=== PATIENT | male | born 1975 | race Caucasian/White ===

== ENCOUNTER 2022-09-22 20:17 | Emergency (ER) | payer BC, SELFPAY ==
[2022-09-22 20:18] VITALS: BP 183/112; PULSE 115; RESP 10; TEMP 36.8; O2SAT 100; BMI 46.2
--- NOTE | 2022-09-22 20:22 | EKG12_ITS ---
Test Reason : DYSRHYTHMIA Blood Pressure : / mmHG Vent. Rate : 121 BPM Atrial Rate : 121 BPM P-R Int : 156 ms QRS Dur : 080 ms QT Int : 326 ms P-R-T Axes : 062 075 063 degrees QTc Int : 462 ms Sinus tachycardia Otherwise normal ECG Confirmed by AVERY VEGA, RENÉE ([id number]), associate editor MARCIAL BUI ([id number]) on 09/24/2022 1:27:20 PM Referred By: PL Confirmed By:WILLIAM VARELA MD
[2022-09-22 20:24] VITALS: TEMP 37.1
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
[2022-09-22] MEDS: Diphth,Pertuss(Acell),Tet Vac 0.5 ML Vial IM (20:31)
[2022-09-22] MEDS: Ondansetron 4 MG/2 ML Vial IV (20:32)
[2022-09-22 20:33] VITALS: BP 163/114; PULSE 116; RESP 18; O2SAT 100
[2022-09-22 20:34] LABS: Absolute Lymphocyte Count 5.64 X10^3/uL (0.83-4.51); Absolute Neutrophil Count 8.3 X10^3/uL (2.0-7.7); Basophil# 0.13 X10^3/uL; Basophil% 0.8 % (0-1); Eosinophil# 0.66 X10^3/uL; Eosinophils% 4.2 % (0-5); Hematocrit 42.4 % (40-54); Hemoglobin 14.1 g/dL (13.0-16.5); Lymphocyte # 5.64 X10^3/ul (0.83-4.51); Mean Corp Hgb Conc 33.3 g/dL (32-36); Mean Corpuscular Hgb 29.3 pg (27.0-32.0); Mean Platelet Vol. 10.2 fl (6.2-12.0); Monocyte# 0.76 X10^3/uL; Monocyte% 4.9 % (0-10); NRBC Flagged by Analyzer 0 % (0-5); Neutrophil # 8.26 X10^3/uL (2.7-7.7); Neutrophil % 52.7 % (47-70); POSITIVE DIFFERENTIAL YES; Platelet Count 323 K/mm3 (150-450); RBC Distribution Width SD 41.8 fl (35.1-43.9); Red Blood Count 4.82 M/mm3 (4.6-6.2); White Blood Count 15.7 K/mm3 (4.4-11.0)
[2022-09-22 20:36] LABS: Differential Indicated SCAN CRITERIA MET
[2022-09-22] MEDS: Cefazolin 2 GM in 0.9% Normal Saline 100 ML IV (20:42)
[2022-09-22] MEDS: fentaNYL 100 MCG/2 ML Ampul 25 MCG IV (20:42)
[2022-09-22 20:49] VITALS: BP 159/103; PULSE 136; RESP 18; O2SAT 98
[2022-09-22 20:49] LABS: Alcohol, Blood (Medical)-Serum < 3.0 mg/dL
[2022-09-22 20:51] LABS: ALB/GLOB Ratio 0.9 RATIO (0.9-2.4); AST(SGOT) 55 U/L (15-37); Alanine Aminotransfer ALT/SGPT 69 U/L (16-61); Albumin, Serum 3.3 g/dL (3.2-5.0); Alkaline Phosphatase 82 U/L (45-117); Anion Gap 7 (5-15); BUN 13 mg/dL (7-18); BUN/Creat Ratio 10.9 RATIO (10-20); Calcium,Total 8.6 mg/dL (8.5-10.1); Chloride 106 mmol/L (98-107); Creatinine, Serum 1.19 mg/dL (0.70-1.30); EST Glomerular Filtration Rate 69 mL/min (>60); Est Glom Filt Rate - Afr Amer 84 mL/min (>60); Estimated Creatinine Clearance 83.32 ml/min; Globulin 3.5 g/dL (2.2-4.2); Glucose 264 mg/dL (74-106); Lipase 65 U/L (13-75); Potassium 3.8 mmol/L (3.5-5.1); Protein, Total 6.8 g/dL (6.4-8.2); Sodium Level 138 mmol/L (136-145); Troponin-I HS 3 pg/mL (3.0-78.0)
[2022-09-22 21:01] LABS: Differential Comment SCANNED
[2022-09-22 21:05] LABS: Lactic Acid 3.5 mmol/L (0.4-1.9)
[2022-09-22 21:10] LABS: Bedside Glucose 237 mg/dL (74-106)
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
[2022-09-23 00:36] LABS: Reflex Lactate? Y
== END 2022-09-22 21:07 | disposition short-term general hospital (02) ==
PROVIDERS: Emergency Provider Emergency Medicine; Visit Provider Emergency Medicine
DX: S82.252A Displaced comminuted fracture of shaft of left tibia, initial encounter for closed fracture (principal); E11.65 Type 2 diabetes mellitus with hyperglycemia; S82.832A Other fracture of upper and lower end of left fibula, initial encounter for closed fracture; S01.511A Laceration without foreign body of lip, initial encounter; V29.888A Rider (driver) (passenger) of other motorcycle injured in other specified transport accidents, initial encounter; Y93.89 Activity, other specified; Y99.8 Other external cause status; Y92.488 Other paved roadways as the place of occurrence of the external cause; Z79.84 Long term (current) use of oral hypoglycemic drugs
CPT/HCPCS: 51702; 71045; 72170; 73590; 80053; 82077; 82962; 83605; 83690; 84484; 85025; 85610; 85730; 90715; 93005; 96365; 96375; 99285; J7030; A4216; J2405

== ENCOUNTER 2022-10-01 11:10 | Inpatient (IN) | payer BC, SELFPAY ==
[2022-10-01 06:00] VITALS: BMI 40.5
[2022-10-01 11:58] VITALS: BP 136/84; PULSE 114; PULSE 116; RESP 18; TEMP 36.1; O2SAT 97; BMI 42.9
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
[2022-10-01] MEDS: oxyCODONE 5 MG Tablet 10 MG PO ×2 (14:35→22:31)
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
[2022-10-01] MEDS: Methocarbamol 500 MG Tablet 1000 MG PO ×2 (14:58→22:27)
[2022-10-01] MEDS: Acetaminophen 500 MG Tablet 1000 MG PO ×2 (14:58→22:27)
[2022-10-01 17:00] LABS: Bedside Glucose 233 mg/dL (74-106)
[2022-10-01] MEDS: Insulin Lispro 100 UNIT/ML INSULN.PEN 22 UNIT SC (17:39)
[2022-10-01] MEDS: Insulin Lispro 100 UNIT/ML INSULN.PEN SC (17:39)
[2022-10-01] MEDS: metFORMIN HCl 1,000 MG Tablet 1000 MG PO (17:39)
[2022-10-01 19:47] VITALS: BP 122/62; PULSE 115; RESP 14; TEMP 36.9; O2SAT 95
[2022-10-01 20:16] VITALS: TEMP 36.6
[2022-10-01 22:27] VITALS: PULSE 116; RESP 16; O2SAT 94
[2022-10-01] MEDS: Senna/Docusate Sodium 1 Tablet 2 TABLET PO (22:28)
[2022-10-01] MEDS: Atorvastatin Calcium 10 MG Tablet 5 MG PO (22:28)
[2022-10-01] MEDS: APIXABAN 2.5 MG TABLET (WCH) PO (22:28)
[2022-10-01] MEDS: Atenolol 25 MG Tablet PO (22:28)
[2022-10-01] MEDS: Insulin Glargine-YFGN 100 UNIT/ML Pen 18 UNIT SC (22:32)
[2022-10-01 23:13] LABS: Bedside Glucose 139 mg/dL (74-106)
[2022-10-02] MEDS: Acetaminophen 500 MG Tablet 1000 MG PO ×3 (05:36→21:19)
[2022-10-02] MEDS: Methocarbamol 500 MG Tablet 1000 MG PO ×3 (05:36→21:20)
[2022-10-02] MEDS: oxyCODONE 5 MG Tablet 10 MG PO ×4 (05:36→21:17)
[2022-10-02 07:04] VITALS: O2SAT 92
[2022-10-02 07:24] LABS: Hematocrit 29.2 % (40-54); Hemoglobin 9.5 g/dL (13.0-16.5); Mean Corp Hgb Conc 32.5 g/dL (32-36); Mean Corpuscular Hgb 30.2 pg (27.0-32.0); Mean Corpuscular Volume 92.7 fL (80-94); Mean Platelet Vol. 9.3 fl (6.2-12.0); POSITIVE COUNT YES; POSITIVE MORPHOLOGY YES; Platelet Count 456 K/mm3 (150-450); RBC Distribution Width CV 13.8 % (11.6-14.6); RBC Distribution Width SD 45.4 fl (35.1-43.9); Red Blood Count 3.15 M/mm3 (4.6-6.2); White Blood Count 11.5 K/mm3 (4.4-11.0)
[2022-10-02 07:29] LABS: Differential Indicated MANUAL DIFF
[2022-10-02 07:30] LABS: Bedside Glucose 204 mg/dL (74-106)
[2022-10-02 07:57] LABS: Eosinophil 1 % (0-5); Lymphocyte 29 % (19-41); Myelocyte 2 % (0-0); Neutrophil-Band 5 % (0-5); Neutrophil-Segmented 63 % (47-70); Total Cells Counted 100 (MANUAL DIFF)
[2022-10-02 07:58] LABS: Anisocytosis 2+; Platelet Estimate SLT INC (ADEQ); Polychromasia 1+
[2022-10-02 07:59] LABS: Absolute Neutrophil Count 7.8 X10^3/uL (2.0-7.7); Neutrophil # 7.82 X10^3/uL (2.7-7.7)
[2022-10-02 08:00] LABS: Absolute Lymphocyte Count 3.34 X10^3/uL (0.83-4.51); Lymphocyte # 3.34 X10^3/ul (0.83-4.51)
[2022-10-02 08:17] LABS: Anion Gap 5 (5-15); BUN 16 mg/dL (7-18); BUN/Creat Ratio 16.2 RATIO (10-20); Chloride 99 mmol/L (98-107); Creatinine, Serum 0.99 mg/dL (0.70-1.30); EST Glomerular Filtration Rate 85 mL/min (>60); Est Glom Filt Rate - Afr Amer 103 mL/min (>60); Estimated Creatinine Clearance 100.16 ml/min; Glucose 204 mg/dL (74-106); Magnesium 2.4 mg/dL (1.6-2.6); Sodium Level 134 mmol/L (136-145)
[2022-10-02 08:19] VITALS: BP 137/84; PULSE 93; RESP 16; TEMP 36.1; O2SAT 94
[2022-10-02] MEDS: Insulin Lispro 100 UNIT/ML INSULN.PEN 22 UNIT SC ×3 (08:20→17:17)
[2022-10-02] MEDS: Insulin Lispro 100 UNIT/ML INSULN.PEN SC ×3 (08:21→17:18)
[2022-10-02] MEDS: metFORMIN HCl 1,000 MG Tablet 1000 MG PO ×2 (08:22→17:18)
[2022-10-02] MEDS: APIXABAN 2.5 MG TABLET (WCH) PO ×2 (08:22→21:21)
[2022-10-02] MEDS: Atenolol 25 MG Tablet PO ×2 (08:23→21:20)
[2022-10-02 08:25] LABS: Cholesterol 145 mg/dL (200); High Density Lipoprotein 31 mg/dL; Phosphorus 3.4 mg/dL (2.5-4.9); Triglycerides 113 mg/dL; Very Low Density Lipoprotein 23 mg/dL (5-40)
[2022-10-02] MEDS: Lisinopril 10 MG Tablet PO (08:25)
[2022-10-02] MEDS: Senna/Docusate Sodium 1 Tablet 2 TABLET PO ×2 (08:25→21:18)
[2022-10-02] MEDS: Polyethylene Glycol 3350 17 GM PACKET PO (08:27)
[2022-10-02 09:01] LABS: Hemoglobin A1c 7.5 % (3.8-5.6)
[2022-10-02 11:20] LABS: Bedside Glucose 214 mg/dL (74-106)
[2022-10-02 16:42] LABS: Bedside Glucose 161 mg/dL (74-106)
[2022-10-02 19:45] VITALS: BP 111/59; PULSE 99; RESP 16; TEMP 36.6; O2SAT 99
[2022-10-02] MEDS: Insulin Glargine-YFGN 100 UNIT/ML Pen 18 UNIT SC (21:17)
[2022-10-02] MEDS: Atorvastatin Calcium 10 MG Tablet 5 MG PO (21:18)
[2022-10-02 21:43] LABS: Bedside Glucose 133 mg/dL (74-106)
[2022-10-03] MEDS: oxyCODONE 5 MG Tablet 10 MG PO ×4 (05:00→21:28)
[2022-10-03] MEDS: Magnesium Hydroxide 30 ML UDC PO (05:01)
[2022-10-03] MEDS: Methocarbamol 500 MG Tablet 1000 MG PO ×3 (05:04→20:13)
[2022-10-03] MEDS: Acetaminophen 500 MG Tablet 1000 MG PO ×3 (05:04→20:14)
[2022-10-03 07:17] LABS: Bedside Glucose 184 mg/dL (74-106)
[2022-10-03 07:18] VITALS: O2SAT 97
[2022-10-03] MEDS: metFORMIN HCl 1,000 MG Tablet 1000 MG PO ×2 (07:39→16:53)
[2022-10-03] MEDS: Polyethylene Glycol 3350 17 GM PACKET PO (07:39)
[2022-10-03] MEDS: Lisinopril 10 MG Tablet PO (07:40)
[2022-10-03] MEDS: APIXABAN 2.5 MG TABLET (WCH) PO ×2 (07:40→20:13)
[2022-10-03] MEDS: Senna/Docusate Sodium 1 Tablet 2 TABLET PO ×2 (07:40→20:14)
[2022-10-03] MEDS: Atenolol 25 MG Tablet PO ×2 (07:41→20:14)
[2022-10-03] MEDS: Insulin Lispro 100 UNIT/ML INSULN.PEN 22 UNIT SC ×3 (07:49→16:53)
[2022-10-03] MEDS: Insulin Lispro 100 UNIT/ML INSULN.PEN SC ×3 (07:49→16:53)
[2022-10-03 08:03] VITALS: BP 116/77; PULSE 91; RESP 16; TEMP 36.6; O2SAT 97
[2022-10-03 11:48] LABS: Bedside Glucose 201 mg/dL (74-106)
[2022-10-03 16:37] LABS: Bedside Glucose 163 mg/dL (74-106)
[2022-10-03 19:32] VITALS: BP 116/60; PULSE 97; RESP 16; TEMP 36.6; O2SAT 98
[2022-10-03] MEDS: Atorvastatin Calcium 10 MG Tablet 5 MG PO (20:13)
[2022-10-03] MEDS: Insulin Glargine-YFGN 100 UNIT/ML Pen 18 UNIT SC (21:32)
[2022-10-03 21:53] LABS: Bedside Glucose 85 mg/dL (74-106)
[2022-10-03 23:08] LABS: Bedside Glucose 151 mg/dL (74-106)
--- NOTE | 2022-10-04 02:08 | NURSING ---
Addendum entered by Adrianna Miranda 10/04/22 02:18: Redd TRIVEDI Original Note: Reviewed and agree with [employer] documentation and assessment charting.
[2022-10-04] MEDS: Acetaminophen 500 MG Tablet 1000 MG PO ×3 (05:33→21:37)
[2022-10-04] MEDS: Methocarbamol 500 MG Tablet 1000 MG PO ×3 (05:33→21:37)
[2022-10-04 06:36] LABS: Bedside Glucose 178 mg/dL (74-106)
[2022-10-04 07:24] VITALS: BP 132/84; PULSE 89; RESP 16; TEMP 36.1; O2SAT 93
[2022-10-04] MEDS: oxyCODONE 5 MG Tablet 10 MG PO ×4 (07:39→21:35)
[2022-10-04] MEDS: Senna/Docusate Sodium 1 Tablet 2 TABLET PO ×2 (07:39→21:38)
[2022-10-04] MEDS: Atenolol 25 MG Tablet PO ×2 (07:39→21:39)
[2022-10-04] MEDS: Lisinopril 10 MG Tablet PO (07:40)
[2022-10-04] MEDS: Insulin Lispro 100 UNIT/ML INSULN.PEN 22 UNIT SC ×2 (07:41→11:47)
[2022-10-04] MEDS: Insulin Lispro 100 UNIT/ML INSULN.PEN SC ×2 (07:41→11:47)
[2022-10-04] MEDS: metFORMIN HCl 1,000 MG Tablet 1000 MG PO ×2 (07:43→17:29)
[2022-10-04] MEDS: APIXABAN 2.5 MG TABLET (WCH) PO ×2 (07:45→21:36)
[2022-10-04 08:44] LABS: Vitamin D,25 Hydroxy 41.5 ng/mL
[2022-10-04 11:30] LABS: Bedside Glucose 182 mg/dL (74-106)
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
[2022-10-04 12:28] LABS: Pathologist Review Reviewed
--- NOTE | 2022-10-04 15:20 | CASEMGMT ---
Social Work SW met w/pt complete initial assessment. Introduced self and role. SW verified contacts. Pt's goal is to return home at discharge, open to home health. Pt also aware that going to a halfway facility before going home could be an option. Pt to have a team meeting on . SW spoke w/pt about getting home health and DME for him, or if alf is needed, exploring this option. SW spoke w/pt about a ramp, as physician had mentioned this to and to speak w/pt's about it. Pt agreeable to SW calling . Pt aware of team meeting . SW did educate pt also about insurance, that we will need to see how long insurance will authorize, pt states understanding. SW called [facility], introduced self and role of SW. SW let her know we have a list of companies for ramps and will leave w/pt. inquired if insurance would cover the cost of a ramp, SW let her know that likely they will not. asked about home health, SW spoke w/her about home health vs pt going to a halfway facility from here. inquired why a ramp would be needed if pt were getting therapy at home. SW explained so that there would be a way for pt to get out of the home. SW explained that this can all be discussed further at the meeting on . states understanding. Discharge plan is to be determined, home w/home health and DME vs SNF. SW will continue to follow. GIOVANNY Connelly
[2022-10-04 16:38] LABS: Bedside Glucose 54 mg/dL (74-106)
[2022-10-04 17:05] LABS: Bedside Glucose 110 mg/dL (74-106)
[2022-10-04] MEDS: Insulin Lispro 100 UNIT/ML INSULN.PEN 20 UNIT SC (17:29)
[2022-10-04 19:30] VITALS: BP 133/68; PULSE 87; RESP 14; TEMP 36.4; O2SAT 99
[2022-10-04] MEDS: Atorvastatin Calcium 10 MG Tablet 5 MG PO (21:38)
[2022-10-04] MEDS: Insulin Glargine-YFGN 100 UNIT/ML Pen 18 UNIT SC (21:40)
[2022-10-04 22:05] LABS: Bedside Glucose 116 mg/dL (74-106)
[2022-10-05 00:25] LABS: Bedside Glucose 136 mg/dL (74-106)
[2022-10-05] MEDS: oxyCODONE 5 MG Tablet 10 MG PO ×3 (05:00→17:57)
[2022-10-05] MEDS: Methocarbamol 500 MG Tablet 1000 MG PO ×3 (05:00→20:06)
[2022-10-05] MEDS: Acetaminophen 500 MG Tablet 1000 MG PO ×3 (05:00→20:07)
[2022-10-05 06:48] LABS: Bedside Glucose 160 mg/dL (74-106)
[2022-10-05 07:52] VITALS: BP 117/68; PULSE 85; RESP 16; TEMP 36.6; O2SAT 97
[2022-10-05] MEDS: Insulin Lispro 100 UNIT/ML INSULN.PEN 25 UNIT SC (08:53)
[2022-10-05] MEDS: Insulin Lispro 100 UNIT/ML INSULN.PEN SC ×2 (08:53→12:39)
[2022-10-05] MEDS: Lisinopril 10 MG Tablet PO (08:54)
[2022-10-05] MEDS: Senna/Docusate Sodium 1 Tablet 2 TABLET PO ×2 (08:54→20:06)
[2022-10-05] MEDS: Atenolol 25 MG Tablet PO ×2 (08:54→20:07)
[2022-10-05] MEDS: DULoxetine Hcl 30 MG Capsule PO (08:54)
[2022-10-05] MEDS: metFORMIN HCl 1,000 MG Tablet 1000 MG PO ×2 (08:54→17:59)
[2022-10-05] MEDS: APIXABAN 2.5 MG TABLET (WCH) PO ×2 (08:55→20:05)
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
[2022-10-05 11:43] LABS: Bedside Glucose 162 mg/dL (74-106)
[2022-10-05] MEDS: Insulin Lispro 100 UNIT/ML INSULN.PEN 20 UNIT SC (12:38)
[2022-10-05] MEDS: Glucagon 1 MG/ML Syringe IM (14:29)
[2022-10-05 14:50] LABS: Bedside Glucose 103 mg/dL (74-106)
[2022-10-05 14:50] LABS: Bedside Glucose 54 mg/dL (74-106)
[2022-10-05 14:50] LABS: Bedside Glucose 61 mg/dL (74-106)
--- NOTE | 2022-10-05 14:52 | NURSING ---
Patient asked therapy to have his blood sugar taken. This nurse obtained blood glucose level of 61. Given coke to help w/ increasing blood sugar level. Patient still feeling dizzy/diaphoretic/shaking. Blood glucose reobtained at level of 54. Informed doctor. ordered glucagon. PRN medication not held in pharmacy. STAT request put in to pharmacy for glucagon. Patient administered glucagon. 15 mins later blood glucose level at 103. Patient states he is feeling okay-abbey. Patient stable for transfer to room.
[2022-10-05 16:24] LABS: Bedside Glucose 149 mg/dL (74-106)
[2022-10-05 19:09] VITALS: BP 114/68; PULSE 84; RESP 12; TEMP 36; O2SAT 97
[2022-10-05] MEDS: Atorvastatin Calcium 10 MG Tablet 5 MG PO (20:05)
[2022-10-05] MEDS: Insulin Glargine-YFGN 100 UNIT/ML Pen 20 UNIT SC (21:20)
[2022-10-05 22:00] VITALS: O2SAT 97
[2022-10-05 22:03] LABS: Bedside Glucose 166 mg/dL (74-106)
--- NOTE | 2022-10-06 02:00 | NURSING ---
Reviewed and agree with Redd TRIVEDI, documentation and assessment charting.
[2022-10-06] MEDS: Methocarbamol 500 MG Tablet 1000 MG PO ×3 (06:18→21:16)
[2022-10-06] MEDS: Acetaminophen 500 MG Tablet 1000 MG PO ×3 (06:18→21:17)
[2022-10-06] MEDS: oxyCODONE 5 MG Tablet 10 MG PO ×3 (06:19→21:18)
[2022-10-06 06:47] LABS: Bedside Glucose 161 mg/dL (74-106)
[2022-10-06] MEDS: metFORMIN HCl 1,000 MG Tablet 1000 MG PO ×2 (08:09→17:57)
[2022-10-06] MEDS: Insulin Lispro 100 UNIT/ML INSULN.PEN 25 UNIT SC (08:09)
[2022-10-06] MEDS: APIXABAN 2.5 MG TABLET (WCH) PO ×2 (08:10→21:15)
[2022-10-06] MEDS: DULoxetine Hcl 30 MG Capsule PO (08:10)
[2022-10-06] MEDS: Atenolol 25 MG Tablet PO ×2 (08:10→21:16)
[2022-10-06] MEDS: Lisinopril 10 MG Tablet PO (08:10)
[2022-10-06] MEDS: Senna/Docusate Sodium 1 Tablet 2 TABLET PO (08:12)
[2022-10-06 10:00] VITALS: BP 126/73; PULSE 81; RESP 16; TEMP 36.4; O2SAT 97
[2022-10-06] MEDS: DULAGLUTIDE 3 MG/0.5 ML PEN.INJCTR SQ (10:39)
[2022-10-06 11:37] LABS: Bedside Glucose 160 mg/dL (74-106)
[2022-10-06] MEDS: Insulin Lispro 100 UNIT/ML INSULN.PEN SC (12:14)
[2022-10-06] MEDS: Insulin Lispro 100 UNIT/ML INSULN.PEN 12 UNIT SC ×2 (12:14→17:58)
[2022-10-06 17:24] LABS: Bedside Glucose 108 mg/dL (74-106)
[2022-10-06 18:58] VITALS: BP 111/63; PULSE 94; RESP 17; TEMP 36.3; O2SAT 95
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
[2022-10-06] MEDS: Atorvastatin Calcium 10 MG Tablet 5 MG PO (21:16)
[2022-10-06] MEDS: Insulin Glargine-YFGN 100 UNIT/ML Pen 20 UNIT SC (21:22)
[2022-10-06 22:15] LABS: Bedside Glucose 108 mg/dL (74-106)
[2022-10-07] MEDS: oxyCODONE 5 MG Tablet 10 MG PO ×3 (05:41→21:29)
[2022-10-07] MEDS: Methocarbamol 500 MG Tablet 1000 MG PO ×3 (05:41→21:31)
[2022-10-07] MEDS: Acetaminophen 500 MG Tablet 1000 MG PO ×3 (05:42→21:31)
[2022-10-07 07:25] LABS: Bedside Glucose 122 mg/dL (74-106)
[2022-10-07 08:51] VITALS: BP 141/82; PULSE 84; RESP 16; TEMP 36.4; O2SAT 96
[2022-10-07] MEDS: metFORMIN HCl 1,000 MG Tablet 1000 MG PO ×2 (09:15→16:32)
[2022-10-07] MEDS: Atenolol 25 MG Tablet PO ×2 (09:15→21:30)
[2022-10-07] MEDS: Lisinopril 10 MG Tablet PO (09:15)
[2022-10-07] MEDS: DULoxetine Hcl 30 MG Capsule PO (09:15)
[2022-10-07] MEDS: APIXABAN 2.5 MG TABLET (WCH) PO ×2 (09:15→21:31)
[2022-10-07] MEDS: Insulin Lispro 100 UNIT/ML INSULN.PEN 25 UNIT SC (09:16)
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
[2022-10-07 11:29] LABS: Bedside Glucose 130 mg/dL (74-106)
[2022-10-07] MEDS: Insulin Lispro 100 UNIT/ML INSULN.PEN 10 UNIT SC (12:06)
--- NOTE | 2022-10-07 13:51 | NURSING ---
Spoke with April at Dr Warner Espinoza office. The office is to order boots that Dr Zhou would like placed on the patient. They will contact the pt's and have her bring them into rehab to be placed.
--- NOTE | 2022-10-07 13:56 | CASEMGMT ---
Social Work Team meeting held today with pt and Rosy in attendance. Pt progress in PT/OT and nursing discussed. SW updated that Insurance update was completed today. Additional time has been granted on RU however waiting on insurance to notify of NRD. Pt has been given resources for a ramp and is to start this process as soon as possible. Pt plans to return home with his at dischrage. Therapy recommending bariatric drop arm BSC, Drop arm w/c with adjustable and removable leg rests, hospital bed, and sliding board. Will continue with treatment plan at this time and reteam next week. JOVANNA John
[2022-10-07 17:07] LABS: Bedside Glucose 95 mg/dL (74-106)
[2022-10-07] MEDS: Insulin Lispro 100 UNIT/ML INSULN.PEN 12 UNIT SC (17:57)
[2022-10-07 20:24] VITALS: BP 113/67; PULSE 92; RESP 17; TEMP 36.7; O2SAT 95
[2022-10-07] MEDS: Atorvastatin Calcium 10 MG Tablet 5 MG PO (21:30)
[2022-10-07] MEDS: Insulin Glargine-YFGN 100 UNIT/ML Pen 20 UNIT SC (21:32)
[2022-10-07 21:55] LABS: Bedside Glucose 80 mg/dL (74-106)
[2022-10-08] MEDS: Methocarbamol 500 MG Tablet 1000 MG PO ×3 (05:40→21:25)
[2022-10-08] MEDS: Acetaminophen 500 MG Tablet 1000 MG PO ×3 (05:41→21:25)
[2022-10-08] MEDS: oxyCODONE 5 MG Tablet 10 MG PO ×4 (05:41→21:24)
[2022-10-08 06:00] LABS: Absolute Lymphocyte Count 1.21 X10^3/uL (0.83-4.51); Absolute Neutrophil Count 3.6 X10^3/uL (2.0-7.7); Basophil# 0.05 X10^3/uL; Basophil% 0.9 % (0-1); Eosinophil# 0.21 X10^3/uL; Eosinophils% 3.7 % (0-5); Hematocrit 28.1 % (40-54); Hemoglobin 8.6 g/dL (13.0-16.5); Lymphocyte # 1.21 X10^3/ul (0.83-4.51); Lymphocyte % 21.5 % (19-41); Mean Corp Hgb Conc 30.6 g/dL (32-36); Mean Corpuscular Hgb 28.5 pg (27.0-32.0); Mean Platelet Vol. 9.2 fl (6.2-12.0); Monocyte# 0.55 X10^3/uL; Monocyte% 9.8 % (0-10); NRBC Flagged by Analyzer 0 % (0-5); Neutrophil # 3.56 X10^3/uL (2.7-7.7); Platelet Count 497 K/mm3 (150-450); RBC Distribution Width CV 14.2 % (11.6-14.6); RBC Distribution Width SD 47.5 fl (35.1-43.9); Red Blood Count 3.02 M/mm3 (4.6-6.2); White Blood Count 5.6 K/mm3 (4.4-11.0)
[2022-10-08 06:24] LABS: Anion Gap 4 (5-15); BUN 13 mg/dL (7-18); BUN/Creat Ratio 14.9 RATIO (10-20); Calcium,Total 8.8 mg/dL (8.5-10.1); Chloride 104 mmol/L (98-107); Creatinine, Serum 0.87 mg/dL (0.70-1.30); EST Glomerular Filtration Rate 99 mL/min (>60); Est Glom Filt Rate - Afr Amer 120 mL/min (>60); Estimated Creatinine Clearance 113.97 ml/min; Glucose 124 mg/dL (74-106); Potassium 4.5 mmol/L (3.5-5.1); Sodium Level 138 mmol/L (136-145)
[2022-10-08 06:56] LABS: Bedside Glucose 131 mg/dL (74-106)
[2022-10-08 07:37] VITALS: BP 110/62; PULSE 81; RESP 15; TEMP 35.8; O2SAT 97
[2022-10-08] MEDS: metFORMIN HCl 1,000 MG Tablet 1000 MG PO ×2 (07:47→17:09)
--- NOTE | 2022-10-08 07:47 | RAD_ITS ---
STUDY: X-RAY - LEFT TIBIA AND FIBULA REASON FOR EXAM: Male, 46 years old. FX FOLLOW UP TECHNIQUE: 4 view(s) of the tibia and fibula were obtained. COMPARISON: Comparison is made with prior study September 22, 2022. FINDINGS: The patient is status post intramedullary yani fixation of a mid tibial fracture. There now is evidence of the healing bony callus. Bony callus is seen in the distal transverse fracture of the fibula. No significant callus is seen in the proximal fibular fracture. The soft tissue structures are unremarkable. RAD/Tibia & Fibula 2 Views IMPRESSION: Healing fracture of the mid tibial shaft as well as a distal fibular shaft. Electronically Signed: Danny Garcia MD at 12:19 EDT ,
[2022-10-08] MEDS: Insulin Lispro 100 UNIT/ML INSULN.PEN 25 UNIT SC (07:48)
--- NOTE | 2022-10-08 09:15 | NURSING ---
Pt had xray imaging of bilateral tib/fib. Splints removed without difficulty prior to imaging. Following imaging per order maite removed from both legs. All incisions well approximated. scant gold colored drainage noted at staple sites. Splints replaced with ABD as padding wrapped with kerlix and MARVIN until new boots arrive. BLE have scattered bruising and scabs.
--- NOTE | 2022-10-08 09:53 | RAD_ITS ---
STUDY: X-RAY - RIGHT TIBIA AND FIBULA REASON FOR EXAM: Male, 46 years old. Recheck Tib Fib fracture -- Portable ToDr Warner Zhou 1 [facility] [place] TECHNIQUE: 2 view(s) of the tibia and fibula were obtained. COMPARISON: Comparison is made with prior examination dated September 22, 2002. FINDINGS: The patient is status post intramedullary yani fixation device of a mid and distal fracture of the tibia. The alignment is maintained. No bony callus is seen. Stable oblique fracture of the proximal fibular shaft as well as the distal fibular shaft with overriding of the fracture fragments. Soft tissue swelling RAD/Tibia & Fibula 2 Views IMPRESSION: Status post intramedullary fixation device in the tibia. The alignment is maintained. No bony callus is seen. Stable appearance of the proximal and distal fibular fractures. Electronically Signed: Danny Garcia MD at 15:02 EDT ,
[2022-10-08] MEDS: APIXABAN 2.5 MG TABLET (WCH) PO ×2 (10:44→21:26)
[2022-10-08] MEDS: DULoxetine Hcl 30 MG Capsule PO (10:44)
[2022-10-08] MEDS: Lisinopril 10 MG Tablet PO (10:45)
[2022-10-08] MEDS: Atenolol 25 MG Tablet PO ×2 (10:45→21:25)
[2022-10-08 11:40] LABS: Bedside Glucose 78 mg/dL (74-106)
[2022-10-08] MEDS: Insulin Lispro 100 UNIT/ML INSULN.PEN 10 UNIT SC ×2 (11:47→17:10)
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
--- NOTE | 2022-10-08 14:54 | NURSING ---
received call for [employer] they will be in to measure pt for ble boots
[2022-10-08 16:51] LABS: Bedside Glucose 116 mg/dL (74-106)
[2022-10-08 18:15] LABS: Bedside Glucose 130 mg/dL (74-106)
[2022-10-08 20:32] VITALS: BP 117/58; PULSE 92; RESP 16; TEMP 36.7; O2SAT 98
[2022-10-08] MEDS: Atorvastatin Calcium 10 MG Tablet 5 MG PO (21:25)
[2022-10-08] MEDS: Senna/Docusate Sodium 1 Tablet 2 TABLET PO (21:26)
[2022-10-08] MEDS: Insulin Glargine-YFGN 100 UNIT/ML Pen 20 UNIT SC (21:31)
[2022-10-08 22:09] LABS: Bedside Glucose 116 mg/dL (74-106)
[2022-10-09] MEDS: Methocarbamol 500 MG Tablet 1000 MG PO ×3 (06:05→21:16)
[2022-10-09] MEDS: Acetaminophen 500 MG Tablet 1000 MG PO ×3 (06:05→21:17)
[2022-10-09] MEDS: oxyCODONE 5 MG Tablet 10 MG PO ×4 (06:06→21:39)
[2022-10-09 06:49] LABS: Bedside Glucose 118 mg/dL (74-106)
[2022-10-09 07:40] VITALS: BP 112/73; PULSE 83; RESP 15; TEMP 36.2; O2SAT 96
[2022-10-09] MEDS: Senna/Docusate Sodium 1 Tablet 2 TABLET PO ×2 (08:30→21:16)
[2022-10-09] MEDS: DULoxetine Hcl 30 MG Capsule PO (08:31)
[2022-10-09] MEDS: metFORMIN HCl 1,000 MG Tablet 1000 MG PO ×2 (08:31→17:40)
[2022-10-09] MEDS: APIXABAN 2.5 MG TABLET (WCH) PO ×2 (08:31→21:15)
[2022-10-09] MEDS: Atenolol 25 MG Tablet PO ×2 (08:31→21:16)
[2022-10-09] MEDS: Lisinopril 5 MG Tablet PO (08:32)
[2022-10-09] MEDS: Insulin Lispro 100 UNIT/ML INSULN.PEN 20 UNIT SC (08:33)
[2022-10-09 12:43] LABS: Bedside Glucose 111 mg/dL (74-106)
[2022-10-09] MEDS: Insulin Lispro 100 UNIT/ML INSULN.PEN 8 UNIT SC (12:51)
[2022-10-09] MEDS: Insulin Lispro 100 UNIT/ML INSULN.PEN 10 UNIT SC (17:44)
[2022-10-09 18:47] LABS: Bedside Glucose 105 mg/dL (74-106)
[2022-10-09 19:31] VITALS: BP 107/58; PULSE 83; RESP 18; TEMP 36.4; O2SAT 95
[2022-10-09] MEDS: Atorvastatin Calcium 10 MG Tablet 5 MG PO (21:19)
[2022-10-09] MEDS: Insulin Glargine-YFGN 100 UNIT/ML Pen 20 UNIT SC (21:23)
[2022-10-09 21:43] LABS: Bedside Glucose 119 mg/dL (74-106)
[2022-10-10] MEDS: Acetaminophen 500 MG Tablet 1000 MG PO ×3 (06:00→21:10)
[2022-10-10] MEDS: Methocarbamol 500 MG Tablet 1000 MG PO ×3 (06:00→21:11)
[2022-10-10] MEDS: oxyCODONE 5 MG Tablet 10 MG PO ×3 (06:00→19:34)
[2022-10-10 06:27] LABS: Bedside Glucose 114 mg/dL (74-106)
[2022-10-10 07:57] VITALS: BP 119/73; PULSE 78; RESP 18; TEMP 36.2; O2SAT 96
[2022-10-10] MEDS: Lisinopril 5 MG Tablet PO (07:59)
[2022-10-10] MEDS: APIXABAN 2.5 MG TABLET (WCH) PO ×2 (08:00→21:10)
[2022-10-10] MEDS: metFORMIN HCl 1,000 MG Tablet 1000 MG PO ×2 (08:00→17:20)
[2022-10-10] MEDS: Atenolol 25 MG Tablet PO ×2 (08:00→21:10)
[2022-10-10] MEDS: DULoxetine Hcl 30 MG Capsule PO (08:00)
[2022-10-10] MEDS: Insulin Lispro 100 UNIT/ML INSULN.PEN 20 UNIT SC (08:01)
[2022-10-10] MEDS: Insulin Lispro 100 UNIT/ML INSULN.PEN 8 UNIT SC (11:57)
[2022-10-10 11:59] LABS: Bedside Glucose 140 mg/dL (74-106)
[2022-10-10] MEDS: Mupirocin Ointment 22gm Tube 1 APPLIC TOPICAL ×2 (17:11→21:13)
[2022-10-10 17:43] LABS: Bedside Glucose 87 mg/dL (74-106)
[2022-10-10 18:38] LABS: Bedside Glucose 126 mg/dL (74-106)
[2022-10-10 20:11] VITALS: BP 135/75; PULSE 88; RESP 17; TEMP 36.3; O2SAT 95
[2022-10-10] MEDS: Atorvastatin Calcium 10 MG Tablet 5 MG PO (21:10)
[2022-10-10] MEDS: Insulin Glargine-YFGN 100 UNIT/ML Pen SC (21:12)
[2022-10-10] MEDS: Insulin Glargine-YFGN 100 UNIT/ML Pen 20 UNIT SC (21:12)
[2022-10-10 22:05] LABS: Bedside Glucose 144 mg/dL (74-106)
[2022-10-11] MEDS: Acetaminophen 500 MG Tablet 1000 MG PO ×3 (05:27→20:30)
[2022-10-11] MEDS: Methocarbamol 500 MG Tablet 1000 MG PO ×3 (05:27→20:29)
[2022-10-11] MEDS: oxyCODONE 5 MG Tablet 10 MG PO ×3 (05:27→20:31)
[2022-10-11 06:53] LABS: Bedside Glucose 134 mg/dL (74-106)
[2022-10-11 07:44] VITALS: BP 122/70; PULSE 76; RESP 15; TEMP 36.3; O2SAT 96
[2022-10-11] MEDS: metFORMIN HCl 1,000 MG Tablet 1000 MG PO ×2 (07:50→17:17)
[2022-10-11] MEDS: Insulin Lispro 100 UNIT/ML INSULN.PEN 20 UNIT SC (07:51)
[2022-10-11] MEDS: APIXABAN 2.5 MG TABLET (WCH) PO ×2 (09:56→20:28)
[2022-10-11] MEDS: Mupirocin Ointment 22gm Tube 1 APPLIC TOPICAL (09:56)
[2022-10-11] MEDS: DULoxetine Hcl 30 MG Capsule PO (09:56)
[2022-10-11] MEDS: Lisinopril 5 MG Tablet PO (09:57)
[2022-10-11] MEDS: Atenolol 25 MG Tablet PO ×2 (09:57→20:30)
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
[2022-10-11 11:33] LABS: Bedside Glucose 76 mg/dL (74-106)
[2022-10-11] MEDS: Insulin Lispro 100 UNIT/ML INSULN.PEN 8 UNIT SC (12:23)
[2022-10-11 16:31] LABS: Bedside Glucose 136 mg/dL (74-106)
[2022-10-11] MEDS: Insulin Lispro 100 UNIT/ML INSULN.PEN 10 UNIT SC (17:17)
[2022-10-11 19:43] VITALS: BP 119/70; PULSE 97; RESP 14; TEMP 36.3; O2SAT 98
[2022-10-11] MEDS: Atorvastatin Calcium 10 MG Tablet 5 MG PO (20:28)
[2022-10-11] MEDS: Insulin Glargine-YFGN 100 UNIT/ML Pen 20 UNIT SC (21:13)
[2022-10-12 00:25] LABS: Bedside Glucose 128 mg/dL (74-106)
--- NOTE | 2022-10-12 03:39 | NURSING ---
Reviewed and agree with Redd TRIVEDI documentation and assessment charting.
[2022-10-12] MEDS: Acetaminophen 500 MG Tablet 1000 MG PO ×3 (05:36→21:08)
[2022-10-12] MEDS: Methocarbamol 500 MG Tablet 1000 MG PO ×3 (05:36→21:07)
[2022-10-12] MEDS: oxyCODONE 5 MG Tablet 10 MG PO ×3 (05:36→18:29)
[2022-10-12 06:59] LABS: Bedside Glucose 144 mg/dL (74-106)
[2022-10-12 07:51] VITALS: BP 118/67; PULSE 96; RESP 14; TEMP 36.5; O2SAT 95
[2022-10-12] MEDS: metFORMIN HCl 1,000 MG Tablet 1000 MG PO ×2 (08:33→17:04)
[2022-10-12] MEDS: APIXABAN 2.5 MG TABLET (WCH) PO ×2 (08:33→21:07)
[2022-10-12] MEDS: DULoxetine Hcl 30 MG Capsule PO (08:33)
[2022-10-12] MEDS: Atenolol 25 MG Tablet PO ×2 (08:33→21:08)
[2022-10-12] MEDS: Lisinopril 5 MG Tablet PO (08:33)
[2022-10-12] MEDS: Insulin Lispro 100 UNIT/ML INSULN.PEN 16 UNIT SC (08:33)
--- NOTE | 2022-10-12 09:46 | CASEMGMT ---
Social Work SW placed call to pt Rosy and updated that insurance update is due today, that continued stay is not guaranteed and pt may likely be ready for dc this week. Rosy states that Ramp can be installed on 10/14 or Thursday 10/19. SW strongly encouraged installation ISADORA as continued stay in [place] is not guaranteed. Rosy is agreeable for pt to return home when read and states she does fiber glass worker and will be able to assist pt at home if needed. SW met with pt and updated on insurance and conversation with pt . Pt inquiring about orthopedic follow up. SW relayed concerns to nursing. SW provided information on wheelchair van transportation. SW to continue to follow for d/c planning. JOVANNA John
[2022-10-12 11:24] LABS: Bedside Glucose 101 mg/dL (74-106)
[2022-10-12] MEDS: Insulin Lispro 100 UNIT/ML INSULN.PEN 8 UNIT SC (12:47)
--- NOTE | 2022-10-12 14:32 | CASEMGMT ---
Social Work Referral made to [facility] for hospital bed, sliding board, bariatric BSC with drop arm and drop arm wheelchair with adjustable and removable leg rests. SW will await response from [facility] as to their ability to provide DME. JOVANNA John
[2022-10-12 16:53] LABS: Bedside Glucose 107 mg/dL (74-106)
[2022-10-12] MEDS: Insulin Lispro 100 UNIT/ML INSULN.PEN 10 UNIT SC (17:04)
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
[2022-10-12 19:48] VITALS: BP 121/59; PULSE 62; RESP 15; TEMP 36.4; O2SAT 94
[2022-10-12] MEDS: Insulin Glargine-YFGN 100 UNIT/ML Pen SC (21:05)
[2022-10-12] MEDS: Insulin Glargine-YFGN 100 UNIT/ML Pen 20 UNIT SC (21:06)
[2022-10-12] MEDS: Atorvastatin Calcium 10 MG Tablet 5 MG PO (21:07)
[2022-10-12 21:26] LABS: Bedside Glucose 141 mg/dL (74-106)
[2022-10-12 22:00] VITALS: PULSE 83; RESP 16; O2SAT 96
[2022-10-13] MEDS: Methocarbamol 500 MG Tablet 1000 MG PO ×3 (05:14→20:07)
[2022-10-13] MEDS: oxyCODONE 5 MG Tablet 10 MG PO ×3 (05:14→20:05)
[2022-10-13] MEDS: Acetaminophen 500 MG Tablet 1000 MG PO ×3 (05:14→20:06)
[2022-10-13 06:00] VITALS: BMI 41.0
[2022-10-13 06:42] LABS: Bedside Glucose 135 mg/dL (74-106)
[2022-10-13 07:23] VITALS: BP 125/77; PULSE 87; RESP 15; TEMP 36; O2SAT 95
[2022-10-13] MEDS: APIXABAN 2.5 MG TABLET (WCH) PO ×2 (08:10→20:06)
[2022-10-13] MEDS: metFORMIN HCl 1,000 MG Tablet 1000 MG PO ×2 (08:10→17:16)
[2022-10-13] MEDS: DULoxetine Hcl 30 MG Capsule PO (08:10)
[2022-10-13] MEDS: Lisinopril 5 MG Tablet PO (08:10)
[2022-10-13] MEDS: Insulin Lispro 100 UNIT/ML INSULN.PEN 14 UNIT SC (08:10)
[2022-10-13] MEDS: Atenolol 25 MG Tablet PO (08:10)
[2022-10-13] MEDS: DULAGLUTIDE 3 MG/0.5 ML PEN.INJCTR SQ (08:11)
--- NOTE | 2022-10-13 09:33 | CASEMGMT ---
Addendum entered by Joyce Palumbo 10/13/22 13:30: ZOILA spoke with Toshia at [facility] via secure email and ensured all DME requested is available for delivery to pt's home once DC date is set. ZOILA phoned to update. thanked this worker and will discuss DC in Team meeting tomorrow. Original Note: Social Work [facility] requesting supporting documentation for DME. ZOILA sent via [email or web address]. BRII NguyenW
[2022-10-13 11:22] LABS: Bedside Glucose 128 mg/dL (74-106)
[2022-10-13] MEDS: Insulin Lispro 100 UNIT/ML INSULN.PEN 8 UNIT SC (12:53)
[2022-10-13 16:24] LABS: Bedside Glucose 99 mg/dL (74-106)
[2022-10-13] MEDS: Insulin Lispro 100 UNIT/ML INSULN.PEN 10 UNIT SC (17:16)
[2022-10-13 19:19] VITALS: BP 115/58; PULSE 88; RESP 15; TEMP 36.6; O2SAT 95
[2022-10-13] MEDS: Atorvastatin Calcium 10 MG Tablet 5 MG PO (20:05)
[2022-10-13] MEDS: Senna/Docusate Sodium 1 Tablet 2 TABLET PO (20:07)
[2022-10-13] MEDS: Insulin Glargine-YFGN 100 UNIT/ML Pen 20 UNIT SC (20:12)
[2022-10-13 21:11] LABS: Bedside Glucose 113 mg/dL (74-106)
[2022-10-13 22:00] VITALS: PULSE 89; RESP 15; O2SAT 95
[2022-10-14] MEDS: Acetaminophen 500 MG Tablet 1000 MG PO ×3 (06:41→19:59)
[2022-10-14] MEDS: oxyCODONE 5 MG Tablet 10 MG PO ×3 (06:41→18:20)
[2022-10-14] MEDS: Methocarbamol 500 MG Tablet 1000 MG PO ×3 (06:52→19:59)
[2022-10-14 07:11] LABS: Bedside Glucose 119 mg/dL (74-106)
[2022-10-14 08:30] VITALS: BP 113/73; PULSE 96; RESP 16; TEMP 36.5; O2SAT 95
[2022-10-14] MEDS: Insulin Lispro 100 UNIT/ML INSULN.PEN 14 UNIT SC (08:43)
[2022-10-14] MEDS: Atenolol 25 MG Tablet PO ×2 (08:43→20:02)
[2022-10-14] MEDS: metFORMIN HCl 1,000 MG Tablet 1000 MG PO ×2 (08:43→17:14)
[2022-10-14] MEDS: APIXABAN 2.5 MG TABLET (WCH) PO ×2 (08:44→20:02)
[2022-10-14] MEDS: Lisinopril 5 MG Tablet PO (08:44)
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
[2022-10-14 11:22] LABS: Bedside Glucose 132 mg/dL (74-106)
[2022-10-14] MEDS: Insulin Lispro 100 UNIT/ML INSULN.PEN 8 UNIT SC (11:59)
[2022-10-14] MEDS: DULoxetine Hcl 30 MG Capsule PO (12:00)
--- NOTE | 2022-10-14 13:38 | CASEMGMT ---
Addendum entered by Joyce Palumbo 10/15/22 09:09: Late entry: 10/14/22 16:05 Received returned call from expressing understanding of HHC coverage. SW educated insurance approved with [employer] 10/21. relieved as pt has new wound on legs that Dr Khan is debriding the following day. would like to see wounds heal more before DC home. SW offered to have pt remain through the weekend, reconvene Tuesday to determine wound healing and ramp installation. agreeable. SW phoned [facility], updated [employer] via [employer]. Updated IDT. SW will continue to follow. Addendum entered by Joyce Palumbo 10/14/22 15:16: SW phoned referral to [facility] for PT/OT/SN. [facility] can accept with SOC 10/18, pending DC date. Insurance benefits explained to this worker and will be explained to at SOC. SW left detailed voicemail for with on acceptance and benefits. Will continue to follow. Original Note: Social Work IDT met with patient and for Team meeting. Discussed patient's progress in PT/OT/SN. Educated to [facility] insurance with [employer] 10/13 and continued stay is not guaranteed with each review. had list of questions. SW and team answered all questions. Once ramp is built, pt can then DC. SW offered skilled HHC vs OP. agreed and requesting [facility]. SW to place referral. DME will be delivered to pt's home prior to DC. Pt cannot transfer in a car and agreeable to w/c transport. SW to coordinate. will notify when ramp is built. Educated to [employer] not delivering DME on the weekends and can only deliver 48 hrs of DC date. expressed understanding. IDT expressed understanding that regardless of LCD, pt cannot safely DC home until ramp and DME are in place. SW will continue to follow. BRII NguyenW
--- NOTE | 2022-10-14 14:57 | VDLE_ITS ---
Reason For Study: Left leg swelling Procedure LEFT This is a venous duplex using B-mode, color GSV is normal. flow and spectral Doppler. CFV is compressible, spontaneous, phasic, Exam performed portable in patient room. competent, and demonstrates normal A preliminary report was called and/or faxed augmentation. to Dr. Khan. FV is compressible, spontaneous, phasic, competent and demonstrates normal augmentation. POP V is compressible, spontaneous, phasic, competent and demonstrates normal augmentation. T/P Trunk is compressible. PTV is compressible. LT PerV is compressible. VL/Venous Duplex US, Unilateral Interpretation Summary Deep veins of the left lower extremity are patent and compressible segmentally. There is no evidence of left lower extremity deep vein thrombosis. The left great saphenous vein madison ears patent and compressible segmentally. Ordering Physician: Aisha Khan Referring Physician: MD Chandrakant Michael Performed By: Nicole Keith RVT
[2022-10-14 16:36] LABS: Bedside Glucose 107 mg/dL (74-106)
[2022-10-14] MEDS: Insulin Lispro 100 UNIT/ML INSULN.PEN 10 UNIT SC (17:14)
[2022-10-14 19:14] VITALS: BP 143/81; PULSE 98; RESP 16; TEMP 36.9; O2SAT 95
[2022-10-14] MEDS: Atorvastatin Calcium 10 MG Tablet 5 MG PO (19:59)
[2022-10-14] MEDS: Senna/Docusate Sodium 1 Tablet 2 TABLET PO (20:01)
[2022-10-14 20:33] VITALS: O2SAT 95
[2022-10-14] MEDS: Insulin Glargine-YFGN 100 UNIT/ML Pen 20 UNIT SC (21:16)
[2022-10-14 21:43] LABS: Bedside Glucose 96 mg/dL (74-106)
[2022-10-15 05:43] LABS: Absolute Lymphocyte Count 1.16 X10^3/uL (0.83-4.51); Absolute Neutrophil Count 2.4 X10^3/uL (2.0-7.7); Basophil# 0.04 X10^3/uL; Eosinophil# 0.19 X10^3/uL; Eosinophils% 4.5 % (0-5); Hematocrit 30.8 % (40-54); Hemoglobin 9.9 g/dL (13.0-16.5); Lymphocyte # 1.16 X10^3/ul (0.83-4.51); Lymphocyte % 27.6 % (19-41); Mean Corp Hgb Conc 32.1 g/dL (32-36); Mean Corpuscular Hgb 29.6 pg (27.0-32.0); Mean Corpuscular Volume 92.2 fL (80-94); Mean Platelet Vol. 8.6 fl (6.2-12.0); Monocyte# 0.42 X10^3/uL; NRBC Flagged by Analyzer 0 % (0-5); Neutrophil # 2.38 X10^3/uL (2.7-7.7); Neutrophil % 56.7 % (47-70); Platelet Count 438 K/mm3 (150-450); RBC Distribution Width CV 14.5 % (11.6-14.6); Red Blood Count 3.34 M/mm3 (4.6-6.2); White Blood Count 4.2 K/mm3 (4.4-11.0)
[2022-10-15] MEDS: Acetaminophen 500 MG Tablet 1000 MG PO ×3 (06:02→20:48)
[2022-10-15] MEDS: Methocarbamol 500 MG Tablet 1000 MG PO ×3 (06:02→20:48)
[2022-10-15] MEDS: oxyCODONE 5 MG Tablet 10 MG PO ×3 (06:02→20:51)
[2022-10-15 06:15] LABS: ALB/GLOB Ratio 0.8 RATIO (0.9-2.4); AST(SGOT) 11 U/L (15-37); Alanine Aminotransfer ALT/SGPT 21 U/L (16-61); Albumin, Serum 2.7 g/dL (3.2-5.0); Alkaline Phosphatase 125 U/L (45-117); Anion Gap 5 (5-15); BUN 10 mg/dL (7-18); BUN/Creat Ratio 12.5 RATIO (10-20); Calcium,Total 8.9 mg/dL (8.5-10.1); Chloride 104 mmol/L (98-107); EST Glomerular Filtration Rate 109 mL/min (>60); Est Glom Filt Rate - Afr Amer 132 mL/min (>60); Estimated Creatinine Clearance 123.94 ml/min; Globulin 3.4 g/dL (2.2-4.2); Glucose 124 mg/dL (74-106); Potassium 4.3 mmol/L (3.5-5.1); Protein, Total 6.1 g/dL (6.4-8.2); Sodium Level 139 mmol/L (136-145)
[2022-10-15 06:29] LABS: Bedside Glucose 120 mg/dL (74-106)
[2022-10-15 07:51] VITALS: BP 126/80; PULSE 84; RESP 16; TEMP 36.1; O2SAT 95
[2022-10-15] MEDS: Atenolol 25 MG Tablet PO ×2 (07:55→20:48)
[2022-10-15] MEDS: Insulin Lispro 100 UNIT/ML INSULN.PEN 14 UNIT SC (07:55)
[2022-10-15] MEDS: DULoxetine Hcl 30 MG Capsule PO (07:55)
[2022-10-15] MEDS: metFORMIN HCl 1,000 MG Tablet 1000 MG PO ×2 (07:55→17:18)
[2022-10-15] MEDS: Lisinopril 5 MG Tablet PO (07:56)
[2022-10-15] MEDS: APIXABAN 2.5 MG TABLET (WCH) PO ×2 (07:56→20:44)
[2022-10-15 11:25] LABS: Bedside Glucose 121 mg/dL (74-106)
[2022-10-15] MEDS: Insulin Lispro 100 UNIT/ML INSULN.PEN 8 UNIT SC (11:52)
[2022-10-15] MEDS: Collagenase 30gm Tube 1 APPLIC TOPICAL (14:57)
[2022-10-15 17:01] LABS: Bedside Glucose 113 mg/dL (74-106)
[2022-10-15] MEDS: Insulin Lispro 100 UNIT/ML INSULN.PEN 10 UNIT SC (17:18)
[2022-10-15 19:21] VITALS: BP 125/75; PULSE 92; RESP 16; TEMP 36.2; O2SAT 96
[2022-10-15] MEDS: Atorvastatin Calcium 10 MG Tablet 5 MG PO (20:47)
[2022-10-15] MEDS: Senna/Docusate Sodium 1 Tablet 2 TABLET PO (20:47)
[2022-10-15] MEDS: Insulin Glargine-YFGN 100 UNIT/ML Pen 20 UNIT SC (20:54)
[2022-10-15 21:22] LABS: Bedside Glucose 107 mg/dL (74-106)
[2022-10-16] MEDS: Methocarbamol 500 MG Tablet 1000 MG PO ×3 (06:07→20:53)
[2022-10-16] MEDS: Acetaminophen 500 MG Tablet 1000 MG PO ×3 (06:08→20:53)
[2022-10-16] MEDS: oxyCODONE 5 MG Tablet 10 MG PO ×2 (06:11→19:02)
[2022-10-16 06:31] LABS: Bedside Glucose 106 mg/dL (74-106)
[2022-10-16 07:33] VITALS: BP 106/64; PULSE 84; RESP 18; TEMP 36.4; O2SAT 96
[2022-10-16] MEDS: Lisinopril 5 MG Tablet PO (07:47)
[2022-10-16 07:48] VITALS: BP 112/72
[2022-10-16] MEDS: metFORMIN HCl 1,000 MG Tablet 1000 MG PO ×2 (07:48→17:01)
[2022-10-16] MEDS: APIXABAN 2.5 MG TABLET (WCH) PO ×2 (07:48→20:53)
[2022-10-16] MEDS: Atenolol 25 MG Tablet PO ×2 (07:48→20:53)
[2022-10-16] MEDS: Insulin Lispro 100 UNIT/ML INSULN.PEN 14 UNIT SC (07:48)
[2022-10-16] MEDS: DULoxetine Hcl 30 MG Capsule PO (07:48)
[2022-10-16] MEDS: Insulin Lispro 100 UNIT/ML INSULN.PEN 8 UNIT SC (12:03)
[2022-10-16 12:23] LABS: Bedside Glucose 112 mg/dL (74-106)
[2022-10-16] MEDS: Collagenase 30gm Tube 1 APPLIC TOPICAL (15:10)
[2022-10-16] MEDS: Lidocaine 4% 50 ML Bottle TOPICAL (15:38)
[2022-10-16] MEDS: Insulin Lispro 100 UNIT/ML INSULN.PEN 10 UNIT SC (17:01)
[2022-10-16 17:22] LABS: Bedside Glucose 110 mg/dL (74-106)
[2022-10-16 19:35] VITALS: BP 123/73; PULSE 97; RESP 17; TEMP 36.7; O2SAT 97
[2022-10-16] MEDS: Atorvastatin Calcium 10 MG Tablet 5 MG PO (20:53)
[2022-10-16] MEDS: Senna/Docusate Sodium 1 Tablet 2 TABLET PO (20:53)
[2022-10-16] MEDS: Insulin Glargine-YFGN 100 UNIT/ML Pen 20 UNIT SC (20:56)
[2022-10-16 21:18] LABS: Bedside Glucose 128 mg/dL (74-106)
[2022-10-17] MEDS: Methocarbamol 500 MG Tablet 1000 MG PO ×3 (05:25→21:04)
[2022-10-17] MEDS: oxyCODONE 5 MG Tablet 10 MG PO ×3 (05:25→21:03)
[2022-10-17] MEDS: Acetaminophen 500 MG Tablet 1000 MG PO ×3 (05:25→21:04)
[2022-10-17 07:09] LABS: Bedside Glucose 109 mg/dL (74-106)
[2022-10-17 07:49] VITALS: BP 115/72; PULSE 82; RESP 16; TEMP 36.3; O2SAT 98
[2022-10-17] MEDS: Insulin Lispro 100 UNIT/ML INSULN.PEN 14 UNIT SC (08:08)
[2022-10-17] MEDS: metFORMIN HCl 1,000 MG Tablet 1000 MG PO ×2 (08:09→16:32)
[2022-10-17] MEDS: Atenolol 25 MG Tablet PO ×2 (08:09→21:05)
[2022-10-17] MEDS: APIXABAN 2.5 MG TABLET (WCH) PO ×2 (08:09→21:05)
[2022-10-17] MEDS: DULoxetine Hcl 30 MG Capsule PO (08:09)
[2022-10-17] MEDS: Lisinopril 5 MG Tablet PO (08:10)
[2022-10-17 11:56] LABS: Bedside Glucose 113 mg/dL (74-106)
[2022-10-17] MEDS: Insulin Lispro 100 UNIT/ML INSULN.PEN 8 UNIT SC (12:21)
[2022-10-17] MEDS: Collagenase 30gm Tube 1 APPLIC TOPICAL (12:21)
[2022-10-17 16:32] LABS: Bedside Glucose 145 mg/dL (74-106)
[2022-10-17] MEDS: Insulin Lispro 100 UNIT/ML INSULN.PEN 10 UNIT SC (17:18)
[2022-10-17 19:30] VITALS: BP 121/72; PULSE 101; RESP 17; TEMP 36.9; O2SAT 97
[2022-10-17] MEDS: Atorvastatin Calcium 10 MG Tablet 5 MG PO (21:03)
[2022-10-17] MEDS: Senna/Docusate Sodium 1 Tablet 2 TABLET PO (21:05)
[2022-10-17] MEDS: Insulin Glargine-YFGN 100 UNIT/ML Pen 20 UNIT SC (21:05)
[2022-10-17 21:29] LABS: Bedside Glucose 112 mg/dL (74-106)
[2022-10-18] MEDS: Acetaminophen 500 MG Tablet 1000 MG PO ×3 (05:54→20:48)
[2022-10-18] MEDS: oxyCODONE 5 MG Tablet 10 MG PO ×3 (05:54→20:50)
[2022-10-18] MEDS: Methocarbamol 500 MG Tablet 1000 MG PO ×3 (05:54→20:47)
[2022-10-18 06:19] LABS: Bedside Glucose 102 mg/dL (74-106)
[2022-10-18] MEDS: Insulin Lispro 100 UNIT/ML INSULN.PEN 14 UNIT SC (07:58)
[2022-10-18] MEDS: metFORMIN HCl 1,000 MG Tablet 1000 MG PO ×2 (07:59→15:54)
[2022-10-18] MEDS: Lisinopril 5 MG Tablet PO (07:59)
[2022-10-18] MEDS: DULoxetine Hcl 30 MG Capsule PO (07:59)
[2022-10-18] MEDS: Atenolol 25 MG Tablet PO ×2 (07:59→20:50)
[2022-10-18] MEDS: APIXABAN 2.5 MG TABLET (WCH) PO ×2 (08:00→20:47)
[2022-10-18 09:05] VITALS: BP 122/73; PULSE 83; RESP 18; TEMP 36.3; O2SAT 97
--- NOTE | 2022-10-18 09:58 | CASEMGMT ---
Social Work Received call from requesting pt DC 10/21. IDT agreeable. Answered further questions and confirmed DME and HHC services. SW updated [employer] via [employer] and phoned [facility]. SW scheduled w/c transport through [facility] for 1330. Plan: DC home with 10/21, [facility] PT/OT/SN, hospital bed, slideboard, drop arm emanuel BSC, w/c w/elevating leg rests. BRII NguyenW
[2022-10-18] MEDS: Collagenase 30gm Tube 1 APPLIC TOPICAL (12:07)
[2022-10-18] MEDS: Insulin Lispro 100 UNIT/ML INSULN.PEN 8 UNIT SC (12:10)
[2022-10-18 12:29] LABS: Bedside Glucose 99 mg/dL (74-106)
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
[2022-10-18 16:16] LABS: Bedside Glucose 105 mg/dL (74-106)
[2022-10-18] MEDS: Insulin Lispro 100 UNIT/ML INSULN.PEN 10 UNIT SC (17:23)
[2022-10-18 18:59] VITALS: BP 108/66; PULSE 90; RESP 16; TEMP 36.3; O2SAT 96
[2022-10-18 19:05] VITALS: BP 108/66; PULSE 90; RESP 16; TEMP 36.3; O2SAT 96
[2022-10-18] MEDS: Atorvastatin Calcium 10 MG Tablet 5 MG PO (20:48)
[2022-10-18] MEDS: Senna/Docusate Sodium 1 Tablet 2 TABLET PO (20:50)
[2022-10-18] MEDS: Insulin Glargine-YFGN 100 UNIT/ML Pen 20 UNIT SC (20:58)
[2022-10-18 21:03] VITALS: PULSE 90
--- NOTE | 2022-10-18 21:32 | NURSING ---
PSYCHOLOGISTS assessment reviewed and agreed with at this time.
[2022-10-18 21:40] LABS: Bedside Glucose 88 mg/dL (74-106)
[2022-10-19] MEDS: oxyCODONE 5 MG Tablet 10 MG PO ×3 (06:09→20:14)
[2022-10-19] MEDS: Acetaminophen 500 MG Tablet 1000 MG PO ×3 (06:09→20:16)
[2022-10-19] MEDS: Methocarbamol 500 MG Tablet 1000 MG PO ×3 (06:09→20:15)
[2022-10-19 06:48] LABS: Bedside Glucose 109 mg/dL (74-106)
[2022-10-19 07:38] VITALS: BP 133/72; PULSE 84; RESP 18; TEMP 36.1; O2SAT 96
[2022-10-19] MEDS: Lisinopril 5 MG Tablet PO (10:27)
[2022-10-19] MEDS: Atenolol 25 MG Tablet PO ×2 (10:28→20:16)
[2022-10-19] MEDS: metFORMIN HCl 1,000 MG Tablet 1000 MG PO ×2 (10:28→17:34)
[2022-10-19] MEDS: APIXABAN 2.5 MG TABLET (WCH) PO ×2 (10:28→20:18)
[2022-10-19] MEDS: DULoxetine Hcl 30 MG Capsule PO (10:28)
[2022-10-19] MEDS: Insulin Lispro 100 UNIT/ML INSULN.PEN 14 UNIT SC (10:29)
[2022-10-19] MEDS: Collagenase 30gm Tube 1 APPLIC TOPICAL (10:31)
[2022-10-19 11:37] LABS: Bedside Glucose 177 mg/dL (74-106)
--- NOTE | 2022-10-19 11:52 | NURSING ---
Spoke with April at Dr Warner lujan office. Pt can have Boots off while in bed. wear at all time when OOB
[2022-10-19] MEDS: Insulin Lispro 100 UNIT/ML INSULN.PEN SC (13:21)
[2022-10-19] MEDS: Insulin Lispro 100 UNIT/ML INSULN.PEN 8 UNIT SC (13:21)
[2022-10-19 17:29] LABS: Bedside Glucose 95 mg/dL (74-106)
[2022-10-19] MEDS: Insulin Lispro 100 UNIT/ML INSULN.PEN 10 UNIT SC (17:34)
[2022-10-19 19:28] VITALS: BP 124/71; PULSE 95; RESP 16; TEMP 36.3; O2SAT 98
[2022-10-19] MEDS: Senna/Docusate Sodium 1 Tablet 2 TABLET PO (20:15)
[2022-10-19] MEDS: Atorvastatin Calcium 10 MG Tablet 5 MG PO (20:15)
[2022-10-19] MEDS: Insulin Glargine-YFGN 100 UNIT/ML Pen 20 UNIT SC (21:44)
[2022-10-19 23:43] LABS: Bedside Glucose 100 mg/dL (74-106)
--- NOTE | 2022-10-20 04:24 | NURSING ---
Reviewed and agree with Redd TRIVEDI, documentation and assessment charting.
[2022-10-20] MEDS: oxyCODONE 5 MG Tablet 10 MG PO ×2 (06:24→18:17)
[2022-10-20] MEDS: Acetaminophen 500 MG Tablet 1000 MG PO ×3 (06:24→21:26)
[2022-10-20] MEDS: Methocarbamol 500 MG Tablet 1000 MG PO ×3 (06:24→21:25)
[2022-10-20 06:52] LABS: Bedside Glucose 114 mg/dL (74-106)
[2022-10-20] MEDS: DULoxetine Hcl 30 MG Capsule PO (08:51)
[2022-10-20] MEDS: Atenolol 25 MG Tablet PO ×2 (08:51→21:25)
[2022-10-20] MEDS: APIXABAN 2.5 MG TABLET (WCH) PO ×2 (08:51→21:27)
[2022-10-20] MEDS: Senna/Docusate Sodium 1 Tablet 2 TABLET PO ×2 (08:51→21:26)
[2022-10-20] MEDS: Collagenase 30gm Tube 1 APPLIC TOPICAL (08:52)
[2022-10-20] MEDS: Lisinopril 5 MG Tablet PO (08:53)
[2022-10-20] MEDS: Polyethylene Glycol 3350 17 GM PACKET PO (08:53)
[2022-10-20] MEDS: metFORMIN HCl 1,000 MG Tablet 1000 MG PO ×2 (08:53→17:14)
[2022-10-20] MEDS: Insulin Lispro 100 UNIT/ML INSULN.PEN 14 UNIT SC (08:54)
[2022-10-20] MEDS: DULAGLUTIDE 3 MG/0.5 ML PEN.INJCTR SQ (08:57)
[2022-10-20 10:00] VITALS: BP 143/84; PULSE 91; RESP 17; TEMP 36.4; O2SAT 97
[2022-10-20 11:26] LABS: Bedside Glucose 139 mg/dL (74-106)
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
[2022-10-20] MEDS: Insulin Lispro 100 UNIT/ML INSULN.PEN 8 UNIT SC (13:22)
--- NOTE | 2022-10-20 13:39 | NURSING ---
Addendum entered by Sheri Bains 10/20/22 15:05: Spoke with April at Dr Espinoza office made aware pt is discharging. she said she spoke with pts today and made f/u appt and appt for xrays Original Note: received faxed orders for Dr Warner Zhou. Pt to remain NWB BLE. Okay to start ROM to ankles. Needs repeat xrays 11/04. Will make pt and aware of orders and notify Dr Espinoza off that pt is being discharged on 10/21 so they can order Out pt xrays.
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
[2022-10-20] MEDS: Insulin Lispro 100 UNIT/ML INSULN.PEN 10 UNIT SC (17:12)
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
[2022-10-20 17:13] LABS: Bedside Glucose 97 mg/dL (74-106)
[2022-10-20 19:49] VITALS: BP 112/64; PULSE 99; RESP 14; TEMP 36.3; O2SAT 98
[2022-10-20 21:20] VITALS: PULSE 99; RESP 14; O2SAT 98
[2022-10-20] MEDS: Atorvastatin Calcium 10 MG Tablet 5 MG PO (21:26)
[2022-10-20] MEDS: Insulin Glargine-YFGN 100 UNIT/ML Pen 20 UNIT SC (21:32)
[2022-10-20 22:42] LABS: Bedside Glucose 103 mg/dL (74-106)
[2022-10-21] MEDS: Acetaminophen 500 MG Tablet 1000 MG PO (06:40)
[2022-10-21] MEDS: Methocarbamol 500 MG Tablet 1000 MG PO (06:41)
[2022-10-21] MEDS: oxyCODONE 5 MG Tablet 10 MG PO (06:41)
[2022-10-21 07:13] LABS: Bedside Glucose 117 mg/dL (74-106)
[2022-10-21] MEDS: Insulin Lispro 100 UNIT/ML INSULN.PEN 14 UNIT SC (08:39)
[2022-10-21] MEDS: Lisinopril 5 MG Tablet PO (08:39)
[2022-10-21] MEDS: DULoxetine Hcl 30 MG Capsule PO (08:39)
[2022-10-21] MEDS: Atenolol 25 MG Tablet PO (08:39)
[2022-10-21] MEDS: APIXABAN 2.5 MG TABLET (WCH) PO (08:39)
[2022-10-21] MEDS: metFORMIN HCl 1,000 MG Tablet 1000 MG PO (08:39)
[2022-10-21] MEDS: Collagenase 30gm Tube 1 APPLIC TOPICAL (08:42)
[2022-10-21 09:39] VITALS: BP 123/77; PULSE 84; RESP 18; TEMP 36.6; O2SAT 96
[2022-10-21] MEDS: Insulin Lispro 100 UNIT/ML INSULN.PEN 8 UNIT SC (12:02)
[2022-10-21 12:07] LABS: Bedside Glucose 141 mg/dL (74-106)
[2022-10-21 14:39] VITALS: BP 123/77; PULSE 93; RESP 16; TEMP 36.6; O2SAT 96
--- NOTE | 2022-11-04 10:54 | PN_ITS ---
Progress Note Manuel only has 14 tabs of Oxycodone left. His PCP deferred to ortho to give him a prescription for Oxycodone. Ortho recommended Tylenol and Motrin. He is still having a lot of pain with therapy and requests another RX. We discussed trying to wean the Oxycodone down and starting a NSAID twice a day. I explained this is the last RX I will be able to give him and he may need to get an appt with pain management if he feels he needs another prescription after this. I recommended he start 2 Alleve (220 mg) twice a day with food and continue T ylenol PRN.
== END 2022-10-21 13:00 | disposition home health service (06) | DRG 559 ==
PROVIDERS: Admitting Provider Internal Medicine; PCP Family Medicine; Visit Provider Internal Medicine
DX: S82.4 Fracture of shaft of fibula (principal); E43 Unspecified severe protein-calorie malnutrition; Z68.41 Body mass index [BMI] 40.0-44.9, adult; E66.01 Morbid (severe) obesity due to excess calories; Z79.4 Long term (current) use of insulin; L89.622 Pressure ulcer of left heel, stage 2; I10 Essential (primary) hypertension; F32.A Depression, unspecified; J45.909 Unspecified asthma, uncomplicated; E78.5 Hyperlipidemia, unspecified; S82.251D Displaced comminuted fracture of shaft of right tibia, subsequent encounter for closed fracture with routine healing; Z79.84 Long term (current) use of oral hypoglycemic drugs; Z79.899 Other long term (current) drug therapy; V29.888D Rider (driver) (passenger) of other motorcycle injured in other specified transport accidents, subsequent encounter
CPT/HCPCS: 36415; 73590; 80048; 80053; 80061; 82306; 82962; 83036; 83735; 84100; 85025; 93971; 94668; 97110; 97162; 97166; 97530; 97535; 97542; 97802; 97803; J1610

== ENCOUNTER 2022-11-19 09:00 | Outpatient (RCR) | payer BC, SELFPAY ==
[2022-11-12 09:21] VITALS: BP 152/94; PULSE 90; RESP 18
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
[2022-11-19 09:36] VITALS: BP 151/91; PULSE 83; TEMP 35.8
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
== END 2022-11-20 23:59 | disposition home or self-care (01) ==
LOC: WC 09:00
PROVIDERS: PCP Family Medicine; Referring Provider Nurse Practitioner Family; Visit Provider Family Medicine
DX: L89.893 Pressure ulcer of other site, stage 3 (principal); E11.622 Type 2 diabetes mellitus with other skin ulcer; L97.822 Non-pressure chronic ulcer of other part of left lower leg with fat layer exposed; L97.812 Non-pressure chronic ulcer of other part of right lower leg with fat layer exposed; E11.59 Type 2 diabetes mellitus with other circulatory complications; E66.01 Morbid (severe) obesity due to excess calories; Z79.4 Long term (current) use of insulin; S82.409D Unspecified fracture of shaft of unspecified fibula, subsequent encounter for closed fracture with routine healing; S82.209D Unspecified fracture of shaft of unspecified tibia, subsequent encounter for closed fracture with routine healing; I10 Essential (primary) hypertension; I87.2 Venous insufficiency (chronic) (peripheral); R60.0 Localized edema; V29.99XD Rider (driver) (passenger) of other motorcycle injured in unspecified traffic accident, subsequent encounter
CPT/HCPCS: 11042; 99213; G0463

== ENCOUNTER 2022-12-03 09:20 | Outpatient (RCR) | payer BC, SELFPAY ==
[2022-11-21 00:47] VITALS: BP 151/91; PULSE 83; RESP 18; TEMP 35.8
[2022-12-03 09:21] VITALS: BP 143/89; PULSE 96; RESP 18; TEMP 35.4
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
== END 2022-12-21 23:59 | disposition home or self-care (01) ==
LOC: WC 09:20
PROVIDERS: PCP Family Medicine; Referring Provider Nurse Practitioner Family; Visit Provider Family Medicine
DX: L89.893 Pressure ulcer of other site, stage 3 (principal); E11.59 Type 2 diabetes mellitus with other circulatory complications; E66.01 Morbid (severe) obesity due to excess calories; Z79.4 Long term (current) use of insulin; I10 Essential (primary) hypertension; I87.2 Venous insufficiency (chronic) (peripheral); V29.99XD Rider (driver) (passenger) of other motorcycle injured in unspecified traffic accident, subsequent encounter; R60.0 Localized edema; S82.209D Unspecified fracture of shaft of unspecified tibia, subsequent encounter for closed fracture with routine healing; S82.409D Unspecified fracture of shaft of unspecified fibula, subsequent encounter for closed fracture with routine healing
CPT/HCPCS: 99213; G0463

== ENCOUNTER 2023-07-05 17:00 | Outpatient (RCR) | payer BC, SELFPAY ==
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
== END 2023-07-05 19:00 | disposition home or self-care (01) ==
LOC: PT 17:00
PROVIDERS: PCP Family Medicine; Visit Provider Orthopaedic Surgery
DX: S82.202D Unspecified fracture of shaft of left tibia, subsequent encounter for closed fracture with routine healing (principal); S82.402D Unspecified fracture of shaft of left fibula, subsequent encounter for closed fracture with routine healing; S82.201D Unspecified fracture of shaft of right tibia, subsequent encounter for closed fracture with routine healing; S82.401D Unspecified fracture of shaft of right fibula, subsequent encounter for closed fracture with routine healing
CPT/HCPCS: 97110; 97112; 97116; 97140; 97161; 97164

== ENCOUNTER 2023-08-05 14:00 | Outpatient (RCR) | payer BC, SELFPAY ==
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
--- NOTE | 2023-09-27 14:32 | HP.PT.NRP ---
Patient Information Patient Information: KARTIK JOY was seen in my office for initial evaluation on . The following Plan of Care was established for this patient: Anticipated Interventions Patient/Client Instruction: Educate patient on: Condition and Plan of Care For the Purpose of:: To improve gait and locomotor functions Therapeutic Exercise to Include: Strength training, Coordination, Postural training, Flexibilty training and Gait and locomotor training For the Purpose of:: To increase ROM, To improve nutrient delivery to tissue, To increase tolerance to activity/condition/position and To improve gait and locomotor functions Last Seen Last Seen: This patient was last seen in our office . Pertinent comments regarding their Physical therapy will appear below: Pt was treated for 55 PT visits for B LE fractures through the date of 08/05/23. Pt has not returned through todays date and is discontinued at this time. At this point I will be discontinuing this patient from physical therapy. I would be happy to see this patient again in the future if found appropriate by the physician. Thank you! Jayden Gil, PT, ATC Balance/Gait/Functional tests Balance/Special Test Scores Lower Extremity Functional Score: 44
== END 2023-08-05 19:00 | disposition home or self-care (01) ==
LOC: PT 14:00
PROVIDERS: PCP Family Medicine
DX: S82.202D Unspecified fracture of shaft of left tibia, subsequent encounter for closed fracture with routine healing (principal); S82.402D Unspecified fracture of shaft of left fibula, subsequent encounter for closed fracture with routine healing; S82.201D Unspecified fracture of shaft of right tibia, subsequent encounter for closed fracture with routine healing; S82.401D Unspecified fracture of shaft of right fibula, subsequent encounter for closed fracture with routine healing
CPT/HCPCS: 97110; 97164

== ENCOUNTER 2025-01-24 17:30 | Outpatient (RCR) | payer BC, SELFPAY ==
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
--- NOTE | 2024-12-20 18:01 | HP.PTREVAL ---
Re-Evaluation Intro: Ross Taylor, ASHANTI, It has been my pleasure to treat KARTIK JOY over the last 9 visits for B shoulder pain. Please see the progress note below for an update on the physical therapy plan of care! Subjective Subjective: Doing about the same. No better, no worse. Objective Objective/Function: Good tolerance to advancements in progressive resisted exercises. Symptoms remained 2/10 or less throughout therapy session. Plan Plan Plan: Continue x1 follow up and then re-assess with Jayden Gil PT, MSPT. B shoulder rot cuff strengthening, scap stab ex's, AROM, PROM, mobs, UBE, and HEP Balance/Gait/Functional tests Balance/Special Test Scores Quick DASH Score: 13.6350 Goals Goals Goal 1:: Decrease B shoulder pain x 50% to aid with sleep Goal Time Frame: 4-6 Weeks Goal Progress: Progressing Goal 2:: Increase B shoulder flex and abd ROM x 30 degrees to aid with overhead lifting Goal Time Frame: 4-6 Weeks Goal Progress: Progressing Goal 3:: Increase B shoulder strength x 3-5 #F to aid with IADL's Goal Time Frame: 4-6 Weeks Goal Progress: Progressing Goal 4:: I with HEP Goal Time Frame: 4-6 Weeks Goal Progress: Progressing Anticipated Interventions Anticipated Interventions Patient/Client Instruction: Educate patient on: Condition and Plan of Care For the Purpose of:: To improve self management Therapeutic Exercise to Include: Strength training, Endurance training, Flexibilty training, Passive ROM, Active ROM and Scapular Strength/Stabilization For the Purpose of:: To decrease pain, To increase ROM and To improve muscle performance and motor function Cryotherapy (ice pack, ice massage): Yes For the Purpose of:: To decrease pain Re-Evaluation Ending Re-evaluation ending: Please do not hesitate to contact me at [phone] by phone or if you have questions or concerns regarding this new plan of care! Sincerely, Jayden Gil, PT, ATC
--- NOTE | 2025-01-24 18:01 | HP.PTREVAL ---
Re-Evaluation Intro: Ross Taylor, AB[place], It has been my pleasure to treat KARTIK JOY over the last 17 visits for B shoulder pain. Please see the progress note below for an update on the physical therapy plan of care! Subjective Subjective: Pt reports he definitely notices improvement. Objective Objective/Function: B shoulder pain is 1-2/10 ROM: R shoulder flex= 125, abd= 135; L shoulder flex= 115, abd= 90 MMT: R shoulder flex= 20, abd= 32, IR= 30, ER= 24; L shoulder flex= 17, abd= 34, IR= 27, ER= 16 Pt is progressing well. Pt would benefit from further strengthening and ROM at this time to aid with IADL's Plan Plan Plan: Continue I with ROM ex's at home. Return to rotator cuff and scap stab ex's here in the clinic. Balance/Gait/Functional tests Balance/Special Test Scores Quick DASH Score: 13.6350 Goals Goals Goal 1:: Decrease B shoulder pain x 50% to aid with sleep Goal Time Frame: 4-6 Weeks Goal Progress: Progressing Goal 2:: Increase B shoulder flex and abd ROM x 30 degrees to aid with overhead lifting Goal Time Frame: 4-6 Weeks Goal Progress: Progressing Goal 3:: Increase B shoulder strength x 3-5 #F to aid with IADL's Goal Time Frame: 4-6 Weeks Goal Progress: Progressing Goal 4:: I with HEP Goal Time Frame: 4-6 Weeks Goal Progress: Progressing Anticipated Interventions Anticipated Interventions Patient/Client Instruction: Educate patient on: Condition and Plan of Care For the Purpose of:: To improve self management Therapeutic Exercise to Include: Strength training, Endurance training, Flexibilty training, Passive ROM, Active ROM and Scapular Strength/Stabilization For the Purpose of:: To decrease pain, To increase ROM and To improve muscle performance and motor function Cryotherapy (ice pack, ice massage): Yes For the Purpose of:: To decrease pain Re-Evaluation Ending Re-evaluation ending: Please do not hesitate to contact me at [phone] by phone or if you have questions or concerns regarding this new plan of care! Sincerely, Jayden Gil, PT, ATC
--- NOTE | 2025-03-18 10:39 | HP.PT.NRP ---
Patient Information Patient Information: KARTIK JOY was seen in my office for initial evaluation on 11/22/24. The following Plan of Care was established for this patient: POC Established Initial Frequency: 2x /Week Initial Duration: 4-6 Weeks Anticipated Interventions Patient/Client Instruction: Educate patient on: Condition and Plan of Care For the Purpose of:: To improve self management Therapeutic Exercise to Include: Strength training, Endurance training, Flexibilty training, Passive ROM, Active ROM and Scapular Strength/Stabilization For the Purpose of:: To decrease pain, To increase ROM and To improve muscle performance and motor function Cryotherapy (ice pack, ice massage): Yes For the Purpose of:: To decrease pain Last Seen Last Seen: This patient was last seen in our office . Pertinent comments regarding their Physical therapy will appear below: Pt has not returned in greater than 30 days and is discontinued at this time. At this point I will be discontinuing this patient from physical therapy. I would be happy to see this patient again in the future if found appropriate by the physician. Thank you! Jayden Gil, PT, ATC Balance/Gait/Functional tests Balance/Special Test Scores Quick DASH Score: 13.6311
== END 2025-01-24 19:00 | disposition home or self-care (01) ==
LOC: PT 17:30
PROVIDERS: PCP Family Medicine; Referring Provider Nurse Practitioner Family; Visit Provider Nurse Practitioner Family
DX: M25.511 Pain in right shoulder (principal); M25.512 Pain in left shoulder; G89.29 Other chronic pain
CPT/HCPCS: 97110; 97161; 97530